=== PATIENT | male | born 1945 | race Caucasian/White ===

== ENCOUNTER 2017-02-23 07:24 | Emergency (ER) | payer OTHER, MEDICARE ==
[~2017-02-23] VITALS: Ht 167.6 cm; Wt 92.7 kg
[2017-02-23 08:50] VITALS: BP 149/85
== END 2017-02-23 08:50 | disposition home or self-care (01) ==
LOC: ED 07:24
DX: M54.5 Low back pain (principal); E11.9 Type 2 diabetes mellitus without complications; Z79.899 Other long term (current) drug therapy; Z88.2 Allergy status to sulfonamides

== ENCOUNTER 2017-04-13 12:29 | Inpatient (IN) | payer OTHER, MEDICARE ==
[~2017-04-13] VITALS: Ht 170.2 cm; Wt 88.9 kg
[2017-04-13 15:00] LABS: CALCIUM 8.5 mg/dL (8.5-10.1); CHLORIDE SERUM 104 mmol/L (98-107); CREATININE SERUM 0.8 mg/dL (0.7-1.3); GLUCOSE SERUM 118 mg/dL (74-106); POTASSIUM SERUM 4.5 mmol/L (3.5-5.1); SODIUM SERUM 138 mmol/L (136-145)
[2017-04-13 15:03] LABS: microscopic required? YES; urine erythrocyte TRACE (NEGATIVE)
[2017-04-13 15:04] LABS: ALKALINE PHOSPHATASE 194 U/L (46-116); ALT/SGPT 76 U/L (16-63); AST/SGOT 78 U/L (15-37); BILIRUBIN TOTAL 2.12 mg/dL (0.20-1.00); CHOLESTEROL 141 mg/dL (<200); LIPASE 417 IU/L (73-393); TOTAL PROTEIN, SERUM 6.8 g/dL (6.4-8.2); TRIGLYCERIDES 78 mg/dL (<150)
[2017-04-13 15:05] LABS: ALBUMIN 2.9 g/dL (3.4-5.0); CHOLESTEROL/HDL RATIO 2.2; HDL CHOLESTEROL 65 mg/dL (40-60)
[2017-04-13 15:09] LABS: BASOPHIL % 0.4 % (0-2)
[2017-04-13 15:15] LABS: FREE T4 1.17 ng/dL (0.76-1.46); FREE THYROXINE INDEX 2.3 ug/dL (1.4-4.5); PLATELET COUNT 73 x10^3mcL (130-400); RED CELL DISTRIBUTION WIDTH 14.7 % (11.5-14.5); T3 TOTAL 0.88 ng/mL; T4(THYROXINE) 6.1 ug/dL (4.7-13.3)
[2017-04-13] MEDS ORDERED: GLIPIZIDE5 M2 PO (17:32)
[2017-04-13] MEDS ORDERED: METFORMIN500 M1 PO (17:32)
[2017-04-13] MEDS ORDERED: MICROZIDE12.5 MG PO (17:33)
[2017-04-13] MEDS ORDERED: PROPRANOLOL HCL10 MG PO (17:33)
[2017-04-13 19:59] LABS: MAGNESIUM 1.9 mg/dL (1.8-2.4); PHOSPHOROUS 4.1 mg/dL (2.5-4.9)
[2017-04-13 20:09] VITALS: BP 162/81
[2017-04-14 06:59] VITALS: BP 137/74
[2017-04-14 09:57] LABS: BASOPHIL % 0.6 % (0-2)
[2017-04-14 09:58] VITALS: BP 105/49
[2017-04-14 10:05] LABS: CALCIUM 8.1 mg/dL (8.5-10.1); CARBON DIOXIDE 24.4 mmol/L (21-32); CHLORIDE SERUM 105 mmol/L (98-107); CREATININE SERUM 0.9 mg/dL (0.7-1.3); GLUCOSE SERUM 191 mg/dL (74-106); MAGNESIUM 1.7 mg/dL (1.8-2.4); PHOSPHOROUS 4.2 mg/dL (2.5-4.9); POTASSIUM SERUM 3.9 mmol/L (3.5-5.1); SODIUM SERUM 139 mmol/L (136-145)
[2017-04-14 10:09] LABS: PLATELET COUNT 67 x10^3mcL (130-400); RED CELL DISTRIBUTION WIDTH 14.6 % (11.5-14.5)
[2017-04-14 12:35] VITALS: BP 137/80
[2017-04-14 17:47] VITALS: BP 125/74
[2017-04-14 21:16] VITALS: BP 148/77
[2017-04-15 05:07] VITALS: BP 121/64
[2017-04-15 06:49] LABS: BASOPHIL % 0.4 % (0-2); PLATELET COUNT 67 x10^3mcL (130-400); RED CELL DISTRIBUTION WIDTH 14.4 % (11.5-14.5)
[2017-04-15 07:02] LABS: CALCIUM 8.3 mg/dL (8.5-10.1); CARBON DIOXIDE 25.9 mmol/L (21-32); CHLORIDE SERUM 105 mmol/L (98-107); CREATININE SERUM 0.8 mg/dL (0.7-1.3); GLUCOSE SERUM 119 mg/dL (74-106); MAGNESIUM 1.8 mg/dL (1.8-2.4); PHOSPHOROUS 3.8 mg/dL (2.5-4.9); POTASSIUM SERUM 4.2 mmol/L (3.5-5.1); SODIUM SERUM 139 mmol/L (136-145)
[2017-04-15 09:54] VITALS: BP 137/79
[2017-04-15] MEDS ORDERED: LEVAQUIN500 M1 PO (11:48)
[2017-04-15] MEDS ORDERED: FLA500 PO (11:49)
[2017-04-15] MEDS ORDERED: LAC PO (11:49)
[2017-04-15] MEDS ORDERED: NORCO1 TA2 PO (11:52)
[2017-04-15] MEDS ORDERED: COLACE100 MG PO (11:54)
[2017-04-15 13:31] VITALS: BP 137/79
== END 2017-04-15 14:22 | disposition home or self-care (01) | DRG 388 ==
LOC: ED 12:29 → DU 18:12 → MU 04-15 10:29
PROVIDERS: Specialist; ADMIT Family Medicine
DX: K56.7 Ileus, unspecified (principal); K72.01 Acute and subacute hepatic failure with coma; D68.69 Other thrombophilia; E44.0 Moderate protein-calorie malnutrition; K52.9 Noninfective gastroenteritis and colitis, unspecified; E11.59 Type 2 diabetes mellitus with other circulatory complications; K80.20 Calculus of gallbladder without cholecystitis without obstruction; I10 Essential (primary) hypertension; K21.9 Gastro-esophageal reflux disease without esophagitis; K74.60 Unspecified cirrhosis of liver; Z68.30 Body mass index [BMI] 30.0-30.9, adult; Z79.84 Long term (current) use of oral hypoglycemic drugs
CPT/HCPCS: 82962; 83880; 84439; J1885; J1956; J2270; J3490; J7030; Q0092; Q9967

== ENCOUNTER 2017-09-19 16:44 | Emergency (ER) | payer OTHER, MEDICARE ==
[~2017-09-19] VITALS: Ht 193 cm; Wt 94.3 kg
[~2017-09-19 16:44] MED LIST: COLACE100 MG PO; FLA500 PO; GLIPIZIDE5 M2 PO; LAC PO; LEVAQUIN500 M1 PO; METFORMIN500 M1 PO; MICROZIDE12.5 MG PO; NORCO1 TA2 PO; PROPRANOLOL HCL10 MG PO
[2017-09-19 17:05] VITALS: BP 161/94
== END 2017-09-19 17:52 | disposition home or self-care (01) ==
LOC: ED 16:44
DX: M54.5 Low back pain (principal); E11.9 Type 2 diabetes mellitus without complications; I10 Essential (primary) hypertension; K21.9 Gastro-esophageal reflux disease without esophagitis; K74.60 Unspecified cirrhosis of liver; Z88.2 Allergy status to sulfonamides; V89.2XXA Person injured in unspecified motor-vehicle accident, traffic, initial encounter; Y93.89 Activity, other specified; Y99.8 Other external cause status; Y92.89 Other specified places as the place of occurrence of the external cause
CPT/HCPCS: 82962

== ENCOUNTER → 2018-05-25 | Outpatient (CLI) | payer OTHER, MEDICARE | END | disposition home or self-care (01) | LOC: RD 16:04 | DX: R07.81 Pleurodynia (principal) ==